=== PATIENT | male | born 1970 | race Caucasian/White ===

== ENCOUNTER 2016-06-12 17:05 | Inpatient (IN) | payer OTHER ==
[~2016-06-12] VITALS: Ht 170.2 cm; Wt 112.2 kg
[~2016-06-12 17:05] MED LIST: ASA81BEC PO; ASPIR 8181 MG PO; CARAFATE 1 GM TA1 G1 PO; COREG3.125 MG PO; DAILY VITE1 EACH PO; EFFIENT10 MG PO; FENOFIBRATE160 MG PO; GLIMEPIRIDE2 MG PO; LIPITOR 20 MG T20 M1 PO; LISINOPRIL-HCT1 EAC1 PO; LISINOPRIL10 MG PO; LISINOPRIL5 MG PO; METFORMIN HCL500 MG PO; PLAVIX 75 MG TA75 M1 PO; PROTONIX40 M1 PO; TYLENOL325 MG PO; UNICOMPLEX M TA1 TA1 PO; ZETIA10 MG PO
[2016-06-12 17:13] VITALS: BP 125/88
[2016-06-12 18:57] LABS: URINE BILIRUBIN NEGATIVE (Negative); URINE BLOOD TRACE (Negative); URINE COLOR YELLOW; URINE GLUCOSE-RANDOM* 1+ (Negative); URINE KETONES NEGATIVE (Negative); URINE LEUKOCYTES-REFLEX NEGATIVE (Negative); URINE PROTEIN (DIPSTICK) 2+ (Negative); URINE SPECIFIC GRAVITY 1.015 (1.003-1.035); URINE UROBILINOGEN 0.2 E.U./dl (0.2-1.0)
[2016-06-12 18:59] LABS: ABSOLUTE NEUTROPHILS 9.4 thou/uL (1.4-8.2); BASOPHILS 0.7 % (0.0-2.0); EOSINOPHILS 0.5 % (0.0-3.0); HEMATOCRIT 39.7 % (42.0-52.0); HEMOGLOBIN 13.5 gm/dL (14.0-18.0); LYMPHOCYTES 16.8 % (24.0-44.0); MANUAL DIFF NO; MCH 28.3 pg (26.0-34.0); MCHC 34.1 g/dL (28.0-37.0); MCV 83.1 fL (80.0-100.0); MONOCYTES 7.6 % (1.0-8.0); PLATELET COUNT 250 thou/uL (150-400); POLYS 74.4 % (36.0-66.0); RBC 4.78 mil/uL (4.50-6.00); RDW 14.2 % (10.5-14.5); WBC 12.6 thou/uL (4.0-11.0)
[2016-06-12 19:09] LABS: SQUAMOUS 0-3 Few /LPF (0-3)
[2016-06-12 19:09] LABS: CALCIUM 8.9 mg/dL (8.5-10.1); CREATININE 1.2 mg/dL (0.7-1.3); POTASSIUM 3.8 mmol/L (3.5-5.1)
[2016-06-12 19:10] LABS: CRYSTALS None Seen /LPF (None Seen); FINE GRANULAR CASTS 0-3 Few /LPF (None Seen); HYALINE CASTS 0-3 Few /LPF (None Seen); URINE RBC 0-2 Rare /HPF (0-2); URINE WBC-REFLEX 0-5 Rare /HPF (0-5)
[2016-06-12 19:14] LABS: TOTAL BILIRUBIN 0.6 mg/dL (<0.1-1.0); TOTAL PROTEIN 7.9 g/dL (6.4-8.2)
[2016-06-12 20:00] VITALS: BP 103/68
[2016-06-13 04:23] VITALS: BP 114/74
[2016-06-13 05:26] LABS: ABSOLUTE NEUTROPHILS 7.3 thou/uL (1.4-8.2); BASOPHILS 0.4 % (0.0-2.0); EOSINOPHILS 0.8 % (0.0-3.0); HEMATOCRIT 36.5 % (42.0-52.0); HEMOGLOBIN 12.4 gm/dL (14.0-18.0); LYMPHOCYTES 20.1 % (24.0-44.0); MCH 28.5 pg (26.0-34.0); MCHC 34.1 g/dL (28.0-37.0); MCV 83.4 fL (80.0-100.0); MONOCYTES 8.6 % (1.0-8.0); PLATELET COUNT 224 thou/uL (150-400); POLYS 70.1 % (36.0-66.0); RBC 4.37 mil/uL (4.50-6.00); RDW 14.1 % (10.5-14.5); WBC 10.4 thou/uL (4.0-11.0)
[2016-06-13 05:31] LABS: MANUAL DIFF NO
[2016-06-13 05:46] LABS: ALBUMIN 3.4 g/dL (3.4-5.0); CALCIUM 8.3 mg/dL (8.5-10.1); CREATININE 1.2 mg/dL (0.7-1.3); MAGNESIUM 1.9 mg/dL (1.8-2.4); POTASSIUM 3.8 mmol/L (3.5-5.1); TOTAL BILIRUBIN 0.6 mg/dL (<0.1-1.0); TOTAL PROTEIN 7.2 g/dL (6.4-8.2)
[2016-06-13 07:07] VITALS: BP 122/75
[2016-06-13 12:16] LABS: CHOLESTEROL 165 mg/dL (<200); HDL CHOLESTEROL 18 mg/dL (>40); TC:HDL 9.2 Ratio (Not establshd); TRIGLYCERIDE 856 mg/dL (<150); VLDL 171 mg/dL (<40)
[2016-06-13 15:31] VITALS: BP 117/75
[2016-06-13 20:00] VITALS: BP 130/87
[2016-06-14 04:30] VITALS: BP 99/67
[2016-06-14 04:58] LABS: HEMATOCRIT 34.4 % (42.0-52.0); HEMOGLOBIN 11.5 gm/dL (14.0-18.0); MCH 28.5 pg (26.0-34.0); MCHC 33.3 g/dL (28.0-37.0); MCV 85.6 fL (80.0-100.0); RBC 4.02 mil/uL (4.50-6.00); RDW 14.1 % (10.5-14.5); WBC 6.5 thou/uL (4.0-11.0)
[2016-06-14 05:16] LABS: ALBUMIN 2.8 g/dL (3.4-5.0); CALCIUM 8.3 mg/dL (8.5-10.1); CREATININE 1.3 mg/dL (0.7-1.3); TOTAL BILIRUBIN 0.4 mg/dL (<0.1-1.0); TOTAL PROTEIN 6.3 g/dL (6.4-8.2)
[2016-06-14 07:22] VITALS: BP 100/62
[2016-06-14] MEDS ORDERED: GEMFIBROZIL 60600 M1 PO (13:34)
[2016-06-14 13:54] VITALS: BP 100/62
[2016-06-14 14:58] VITALS: BP 128/75
== END 2016-06-14 16:28 | disposition home or self-care (01) | DRG 439 ==
LOC: ER 17:05 → 4E 20:16 → EROBS 20:16 → 4E 21:49
PROVIDERS: Family Medicine; Nurse Practitioner; Physician Assistant
DX: K85.90 Acute pancreatitis without necrosis or infection, unspecified (principal); E87.1 Hypo-osmolality and hyponatremia; K76.0 Fatty (change of) liver, not elsewhere classified; I10 Essential (primary) hypertension; G47.33 Obstructive sleep apnea (adult) (pediatric); E11.65 Type 2 diabetes mellitus with hyperglycemia; E66.01 Morbid (severe) obesity due to excess calories; E78.5 Hyperlipidemia, unspecified; I25.10 Atherosclerotic heart disease of native coronary artery without angina pectoris; Z87.11 Personal history of peptic ulcer disease; I25.2 Old myocardial infarction; Z98.61 Coronary angioplasty status; Z88.6 Allergy status to analgesic agent; Z79.82 Long term (current) use of aspirin; Z79.84 Long term (current) use of oral hypoglycemic drugs; Z82.49 Family history of ischemic heart disease and other diseases of the circulatory system; Z82.3 Family history of stroke; Z87.891 Personal history of nicotine dependence; Z68.38 Body mass index [BMI] 38.0-38.9, adult
CPT/HCPCS: 10183

== ENCOUNTER 2016-11-20 00:16 | Inpatient (IN) | payer OTHER ==
[~2016-11-20] VITALS: Ht 170.2 cm; Wt 116.8 kg
--- NOTE | ~2016-11-20 | EKG ---
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1970 Requested By: Galdino Kennedy Order Number: [id number] MD: Tao Steven Measurements Intervals [place] Rate: 82 P: 32 MO: 134 QRS: -7 QRSD: 96 T: 29 QT: 359 QTc: 420 Interpretive Statements Sinus rhythm Abnormal R-wave progression, early transition Compared to ECG 03/23/2014 10:05:38 Sinus tachycardia no longer present Electronically Signed On 11-21-2016 7:42:22 CDT by Tao Steven [email or web address] <ELECTRONICALLY SIGNED> By: Tao Steven MD, [facility] 11/21/16 0742 0413 0413 Tao Steven MD, [facility] /EPI
--- NOTE | ~2016-11-20 | EKG ---
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 : 1970 Requested By: Floridalma Grider Order Number: [id number] MD: Tao Steven Measurements Intervals [place] Rate: 83 P: 38 NC: 132 QRS: -7 QRSD: 97 T: 23 QT: 360 QTc: 423 Interpretive Statements Sinus rhythm Abnormal R-wave progression, early transition Baseline wander in lead(s) V2,V3 Compared to ECG 03/23/2014 10:05:38 Sinus tachycardia no longer present Electronically Signed On 11-20-2016 7:44:38 CDT by Tao Steven [email or web address] <ELECTRONICALLY SIGNED> By: Tao Steven MD, [facility] 11/20/16 0744 Tao Steven MD, [facility] /EPI
[~2016-11-20 00:16] MED LIST changes: +GEMFIBROZIL 60600 M1 PO
[2016-11-20 00:18] VITALS: BP 119/83
[2016-11-20 01:16] LABS: BASOPHILS 0.3 % (0.0-2.0); EOSINOPHILS 0.8 % (0.0-3.0); HEMATOCRIT 40.1 % (42.0-52.0); HEMOGLOBIN 13.9 gm/dL (14.0-18.0); LYMPHOCYTES 14.7 % (24.0-44.0); MCH 28.6 pg (26.0-34.0); MCHC 34.7 g/dL (28.0-37.0); MCV 82.4 fL (80.0-100.0); MONOCYTES 6.9 % (1.0-8.0); PLATELET COUNT 259 thou/uL (150-400); POLYS 77.3 % (36.0-66.0); RBC 4.86 mil/uL (4.50-6.00); RDW 14.2 % (10.5-14.5); WBC 11.7 thou/uL (4.0-11.0)
[2016-11-20 01:19] LABS: CALCIUM 8.4 mg/dL (8.5-10.1); CREATININE 0.9 mg/dL (0.7-1.3); POTASSIUM 4.1 mmol/L (3.5-5.1)
[2016-11-20 01:24] LABS: MANUAL DIFF NO
[2016-11-20 01:25] LABS: ALBUMIN 3.6 g/dL (3.4-5.0); TOTAL BILIRUBIN 0.9 mg/dL (<0.1-1.0)
[2016-11-20 01:46] LABS: TOTAL PROTEIN 7.3 g/dL (6.4-8.2)
[2016-11-20 02:39] VITALS: BP 104/65
[2016-11-20 02:50] VITALS: BP 111/68
[2016-11-20] MEDS ORDERED: FENOFIBRATE160 MG PO (03:44)
[2016-11-20] MEDS ORDERED: FISH OIL 1,001000 M2 PO (03:47)
[2016-11-20] MEDS ORDERED: VITAMIN B-12500 MCG PO (03:49)
[2016-11-20] MEDS ORDERED: VITAMIN E400 UNIT PO (03:50)
[2016-11-20] MEDS ORDERED: LEVEMIR SUBQ (03:54)
[2016-11-20 07:33] VITALS: BP 117/63
[2016-11-20 09:54] LABS: URINE BILIRUBIN NEGATIVE (Negative); URINE BLOOD NEGATIVE (Negative); URINE COLOR YELLOW; URINE GLUCOSE-RANDOM* 2+ (Negative); URINE KETONES NEGATIVE (Negative); URINE LEUKOCYTES-REFLEX NEGATIVE (Negative); URINE PROTEIN (DIPSTICK) TRACE (Negative); URINE UROBILINOGEN 0.2 E.U./dl (0.2-1.0)
[2016-11-20 15:27] VITALS: BP 122/75
[2016-11-20 19:22] VITALS: BP 130/74
[2016-11-21 03:52] VITALS: BP 111/60
[2016-11-21 05:58] LABS: HEMATOCRIT 37.2 % (42.0-52.0); HEMOGLOBIN 12.5 gm/dL (14.0-18.0); MCH 28.1 pg (26.0-34.0); MCHC 33.6 g/dL (28.0-37.0); MCV 83.8 fL (80.0-100.0); RBC 4.44 mil/uL (4.50-6.00); RDW 14.2 % (10.5-14.5); WBC 8.9 thou/uL (4.0-11.0)
[2016-11-21 06:16] LABS: ALBUMIN 2.7 g/dL (3.4-5.0); CALCIUM 8.4 mg/dL (8.5-10.1); CREATININE 0.9 mg/dL (0.7-1.3); POTASSIUM 3.6 mmol/L (3.5-5.1); TOTAL BILIRUBIN 0.7 mg/dL (<0.1-1.0); TOTAL PROTEIN 6.8 g/dL (6.4-8.2)
[2016-11-21 08:00] VITALS: BP 128/76
[2016-11-21 15:29] VITALS: BP 117/75
[2016-11-21 20:05] VITALS: BP 122/77
[2016-11-22 03:19] VITALS: BP 126/77
[2016-11-22 04:59] LABS: ABSOLUTE NEUTROPHILS 6.2 thou/uL (1.4-8.2); BASOPHILS 0.7 % (0.0-2.0); EOSINOPHILS 1.5 % (0.0-3.0); HEMATOCRIT 34.3 % (42.0-52.0); HEMOGLOBIN 11.1 gm/dL (14.0-18.0); MCH 27.7 pg (26.0-34.0); MCHC 32.4 g/dL (28.0-37.0); MCV 85.4 fL (80.0-100.0); MONOCYTES 9.7 % (1.0-8.0); PLATELET COUNT 202 thou/uL (150-400); POLYS 72.1 % (36.0-66.0); RBC 4.01 mil/uL (4.50-6.00); RDW 14.6 % (10.5-14.5); WBC 8.6 thou/uL (4.0-11.0)
[2016-11-22 05:00] LABS: MANUAL DIFF NO
[2016-11-22 05:10] LABS: CALCIUM 8.5 mg/dL (8.5-10.1); CREATININE 0.9 mg/dL (0.7-1.3); POTASSIUM 3.9 mmol/L (3.5-5.1)
[2016-11-22 05:13] LABS: TRIGLYCERIDE 649 mg/dL (<150)
[2016-11-22 07:49] VITALS: BP 124/78
[2016-11-22 16:06] VITALS: BP 121/72
[2016-11-22 20:47] VITALS: BP 143/80
[2016-11-23 03:31] VITALS: BP 142/55
[2016-11-23 05:35] LABS: ABSOLUTE NEUTROPHILS 4.8 thou/uL (1.4-8.2); BASOPHILS 0.9 % (0.0-2.0); EOSINOPHILS 3.3 % (0.0-3.0); HEMATOCRIT 35.6 % (42.0-52.0); HEMOGLOBIN 11.9 gm/dL (14.0-18.0); LYMPHOCYTES 18.6 % (24.0-44.0); MCH 28.5 pg (26.0-34.0); MCHC 33.3 g/dL (28.0-37.0); MCV 85.5 fL (80.0-100.0); MONOCYTES 8.1 % (1.0-8.0); PLATELET COUNT 240 thou/uL (150-400); POLYS 69.1 % (36.0-66.0); RBC 4.16 mil/uL (4.50-6.00); RDW 14.9 % (10.5-14.5)
[2016-11-23 05:37] LABS: MANUAL DIFF NO
[2016-11-23 05:50] LABS: CALCIUM 8.4 mg/dL (8.5-10.1); CREATININE 0.8 mg/dL (0.7-1.3); POTASSIUM 3.9 mmol/L (3.5-5.1)
[2016-11-23 07:50] VITALS: BP 141/81
[2016-11-23 15:04] VITALS: BP 149/91
[2016-11-23 20:30] VITALS: BP 136/76
[2016-11-24 04:28] VITALS: BP 143/83
[2016-11-24 08:10] VITALS: BP 140/86
[2016-11-24 16:05] VITALS: BP 140/88
[2016-11-24 20:32] VITALS: BP 135/84
[2016-11-25 03:00] VITALS: BP 125/80
[2016-11-25 06:24] LABS: CALCIUM 8.6 mg/dL (8.5-10.1); CREATININE 0.8 mg/dL (0.7-1.3); HEMATOCRIT 34.2 % (42.0-52.0); HEMOGLOBIN 11.5 gm/dL (14.0-18.0); MCH 28.4 pg (26.0-34.0); MCHC 33.6 g/dL (28.0-37.0); MCV 84.5 fL (80.0-100.0); PLATELET COUNT 257 thou/uL (150-400); POTASSIUM 3.7 mmol/L (3.5-5.1); RBC 4.05 mil/uL (4.50-6.00); RDW 14.5 % (10.5-14.5); WBC 5.3 thou/uL (4.0-11.0)
[2016-11-25 06:41] LABS: MANUAL DIFF YES
[2016-11-25 08:00] VITALS: BP 137/72
[2016-11-25 08:18] LABS: ABSOLUTE NEUTROPHILS 2.9 thou/uL (1.4-8.2); METAMYELOCYTES 1 %; POLYCHROMASIA OCCASIONAL; TOTAL CELL COUNT 100
[2016-11-25 08:19] LABS: ANISOCYTOSIS SLIGHT
[2016-11-25] MEDS ORDERED: PERCOCET PO (13:14)
[2016-11-25] MEDS ORDERED: FLAGYL500 MG PO (13:15)
[2016-11-25] MEDS ORDERED: CIPRO500 MG PO (13:15)
[2016-11-25 13:45] VITALS: BP 137/72
== END 2016-11-25 16:30 | disposition home or self-care (01) | DRG 439 ==
LOC: ER 00:16 → EROBS 02:21 → 4S 02:21 → ENTRNSPT 11-25 16:30
PROVIDERS: Emergency Medicine; Family Medicine; Internal Medicine Gastroenterology; Nurse Practitioner Family
DX: K85.90 Acute pancreatitis without necrosis or infection, unspecified (principal); J98.11 Atelectasis; E87.1 Hypo-osmolality and hyponatremia; J90 Pleural effusion, not elsewhere classified; Z68.41 Body mass index [BMI] 40.0-44.9, adult; E87.0 Hyperosmolality and hypernatremia; I10 Essential (primary) hypertension; E78.00 Pure hypercholesterolemia, unspecified; I25.10 Atherosclerotic heart disease of native coronary artery without angina pectoris; E11.65 Type 2 diabetes mellitus with hyperglycemia; E78.5 Hyperlipidemia, unspecified; K76.0 Fatty (change of) liver, not elsewhere classified; E66.9 Obesity, unspecified; E78.1 Pure hyperglyceridemia; Z95.5 Presence of coronary angioplasty implant and graft; I25.2 Old myocardial infarction; Z87.11 Personal history of peptic ulcer disease; Z79.899 Other long term (current) drug therapy; Z88.1 Allergy status to other antibiotic agents; Z88.8 Allergy status to other drugs, medicaments and biological substances; Z87.891 Personal history of nicotine dependence; Z28.21 Immunization not carried out because of patient refusal
CPT/HCPCS: 10102

== ENCOUNTER → 2018-03-02 | Outpatient (CLI) | payer BC ==
[~2018-03-02] MED LIST changes: +CIPRO500 MG PO; +FISH OIL 1,001000 M2 PO; +FLAGYL500 MG PO; +LEVEMIR SUBQ; +PERCOCET PO; +VITAMIN B-12500 MCG PO; +VITAMIN E400 UNIT PO
--- NOTE | 2018-03-02 16:19 | 2DMMODE ---
[facility] [address] [place] [address] 2 D/M-MODE ECHOCARDIOGRAM Name: YINGALEXSNEHA RAMIREZ Room #: REG [facility]#: [id number] Admission: 03/02/18 Attend Phys: Floyd Montes Discharge: Date of : 68 Date of Service: 03/02/18 1618 Report #: [id number] THIS REPORT FOR: //name// APPROVED REPORT Study performed: 03/02/2018 15:18:10 EXAM: Comprehensive 2D, Doppler, and color-flow Echocardiogram Patient Location: Out-Patient Status: routine BSA: 2.28 HR: 65 bpm BP: 138/55 mmHg Other Information Study Quality: Adequate Indications Cardiomyopathy 2D Dimensions RVDd: 36.33 mm IVSd: 10.28 (7-11mm) LVOT Diam: 23.05 (18-24mm) LVDd: 55.11 mm PWd: 9.56 (7-11mm) Ascending Ao: 31.88 (22-36mm) LVDs: 43.41 (25-40mm) Aortic Root: 32.44 mm IVC: 17.00 mm Volumes Left Atrial Volume (Systole) Single Plane 4CH: 53.21 mL Single Plane 2CH: 57.17 mL LA ESV Index: 27.00 mL/m2 Aortic Valve AoV Peak Dileep.: 1.57 m/s AO Peak Gr.: 9.88 mmHg LVOT Max P.15 mmHg LVOT Max V: 1.24 m/s PERCY Vmax: 3.29 cm2 Mitral Valve E/A Ratio: 1.8 MV Decel. Time: 169.25 ms MV E Max Dileep.: 1.16 m/s MV A Dileep.: 0.64 m/s [facility] [address] [place] [address] 2 D/M-MODE ECHOCARDIOGRAM Name: SNEHA JOSEPH Room #: REG [facility].#: [id number] Admission: 03/02/18 Attend Phys: Floyd Montes Discharge: Date of : 68 Date of Service: 03/02/18 1618 Report #: [id number] MV PHT: 49.08 ms IVRT: 83.04 ms Pulmonary Valve PV Peak Dileep.: 1.36 m/s PV Peak Gr.: 7.37 mmHg Pulmonary Vein P Vein S: 0.66 m/s P Vein A: 0.23 m/s P Vein D: 0.58 m/s P Vein A Dur.: 138.4 msec P Vein S/D Ratio: 1.14 Tricuspid Valve RAP Estimate: 10.00 mmHg Left Ventricle Left ventricle is at the upper limits of normal. There is normal left ventricular wall thickness. Left ventricular systolic function is mildly decreased. LVEF is 40-45%.mild global The left ventricular diastolic function is normal. Right Ventricle The right ventricle is normal size. The right ventricular systolic function is normal. Atria The left atrium size is normal. The right atrium size is normal. Aortic Valve Aortic valve is mildly calcified. Trace aortic regurgitation. There is no aortic valvular stenosis. Mitral Valve The mitral valve is normal in structure. Trace mitral regurgitation. No evidence of mitral valve stenosis. Tricuspid Valve The tricuspid valve is normal in structure. There is no tricuspid valve regurgitation noted. Unable to assess PA pressure. Pulmonic Valve The pulmonary valve is normal in structure. Trace pulmonic regurgitation. Great Vessels The aortic root is normal in size. IVC is normal in size and [facility] [address] [place] [address] 2 D/M-MODE ECHOCARDIOGRAM Name: JAKESNEHA ASHLEY Room #: REG [facility].#: [id number] Admission: 03/02/18 Attend Phys: Floyd Montes Discharge: Date of : 68 Date of Service: 03/02/18 1618 Report #: [id number] collapses <50% with inspiration. Pericardium There is no pericardial effusion. <Conclusion> Left ventricle is at the upper limits of normal. Left ventricular systolic function is mildly decreased. LVEF is 40-45%.mild global The right ventricle is normal size. The left ventricular diastolic function is normal. The left atrium size is normal. Aortic valve is mildly calcified. Trace aortic regurgitation. Trace mitral regurgitation. The mitral valve is normal in structure. The tricuspid valve is normal in structure. The aortic root is normal in size. There is no pericardial effusion. <ELECTRONICALLY SIGNED> By: Jared Short MD, FACC 03/02/18 1618 1618 1618 Jared Short MD, FACC /INF
== END ==
LOC: CV 02-27 09:59
DX: I42.9 Cardiomyopathy, unspecified (principal)

== ENCOUNTER 2018-10-06 13:44 | Inpatient (IN) | payer BC ==
[~2018-10-06] VITALS: Ht 175.3 cm; Wt 115.7 kg
[2018-10-06 13:50] VITALS: BP 148/90
[2018-10-06] MEDS ORDERED: [UNRECOGNIZED DRUG - OTHER] PO (14:17)
[2018-10-06] MEDS ORDERED: ENTRESTO 49 MG1 EACH PO (14:18)
[2018-10-06 14:25] LABS: ABSOLUTE NEUTROPHILS 3.6 thou/uL (1.4-8.2); BASOPHILS 1.6 % (0.0-2.0); EOSINOPHILS 2.1 % (0.0-3.0); HEMATOCRIT 40.6 % (42.0-52.0); HEMOGLOBIN 14.1 gm/dL (14.0-18.0); LYMPHOCYTES 30.7 % (24.0-44.0); MCH 28.9 pg (26.0-34.0); MCHC 34.7 g/dL (28.0-37.0); MCV 83.3 fL (80.0-100.0); MONOCYTES 6.2 % (1.0-8.0); PLATELET COUNT 221 thou/uL (150-400); POLYS 59.4 % (36.0-66.0); RBC 4.87 mil/uL (4.50-6.00); RDW 14.1 % (10.5-14.5); WBC 6.1 thou/uL (4.0-11.0)
[2018-10-06 14:29] LABS: ANION GAP 10 mmol/L (7-16); BUN 10 mg/dL (7-18); CALCIUM 8.7 mg/dL (8.5-10.1); CHLORIDE 93 mmol/L (98-107); CO2 25 mmol/L (21-32); CREATININE 1.2 mg/dL (0.7-1.3); GLUCOSE 377 mg/dL (74-106); POTASSIUM 4.3 mmol/L (3.5-5.1); SODIUM 128 mmol/L (136-145)
[2018-10-06 14:38] LABS: TROPONIN-I <0.06 ng/mL (<0.06)
[2018-10-06 16:10] LABS: CHOLESTEROL 248 mg/dL (<200); HDL CHOLESTEROL 14 mg/dL (>40); TC:HDL 17.7 Ratio (Not establshd); VLDL 582 mg/dL (<40)
[2018-10-06 16:19] LABS: ALBUMIN 3.7 g/dL (3.4-5.0); DIRECT BILIRUBIN 0.1 mg/dL (<0.1-0.3); TOTAL BILIRUBIN 0.6 mg/dL (<0.1-1.0); TOTAL PROTEIN 7.1 g/dL (6.4-8.2)
[2018-10-06 16:30] LABS: TRIGLYCERIDE 2910 mg/dL (<150)
--- NOTE | 2018-10-06 16:33 | EKG ---
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 : 1970 Requested By: Cherri Daniels Order Number: [id number] MD: Jae Warren Measurements Intervals [place] Rate: 72 P: 51 MN: 143 QRS: -6 QRSD: 96 T: 25 QT: 383 QTc: 420 Interpretive Statements Sinus rhythm Left atrial enlargement ST elev, probable normal early repol pattern Baseline wander in lead(s) V2 Compared to ECG 10/21/2017 19:12:12 Atrial abnormality now present ST (T wave) deviation now present Electronically Signed On 10-06-2018 16:33:26 CDT by Jae Warren [email or web address] <ELECTRONICALLY SIGNED> By: Jae Warren MD 10/06/18 1633 1348 1348 Jae Warren MD /EPI
[2018-10-06 17:29] LABS: TSH 2.259 uIU/mL (0.358-3.740)
[2018-10-06 17:42] VITALS: BP 141/87
[2018-10-06 19:29] VITALS: BP 120/83
[2018-10-06 19:53] VITALS: BP 136/86
[2018-10-06] MEDS ORDERED: SPIRONOLACTONE25 M1 PO (20:31)
[2018-10-06] MEDS ORDERED: CLARITIN10 MG PO (20:32)
[2018-10-07] VITALS (7 sets, daily range): BP systolic 113–147; BP diastolic 71–99
[2018-10-07 00:08] LABS: GLYCOHEMOGLOBIN (HGB A1C) 12.6 % (4.8-5.6)
--- NOTE | 2018-10-07 06:02 | NUR ---
PT ARRIVED TO UNIT APPROX 1930, ADMISSION AND ASSESSMENT COMPLETED, CONSENTS SIGNED INCLUDING TELE DISCLAIMER. PT A&Ox4 BUT VERY FLAT AND UNCOOPERATIVE WITH ANSWERING QUESTIONS, KEPT DEFERRING QUESTIONS ABOUT HISTORY AND CURRENT SYMPTOMS TO HIS , AND IGNORING STAFF. HAVING FREQ NAUSEA WITH BOTH DRY HEAVES AND EMESIS; C/O RUQ ABD PAIN. KEEPING NPO WITH Q6 ACCUCHECKS AND SLIDING SCALE INSULIN COVERAGE, GIVEN 12 UNITS AT MIDNIGHT. IV FLUIDS INFUSING. SR-ST 95-103 ON TELE. NO OTHER CONCERNS, WILL CONTINUE TO MONITOR.
[2018-10-07 11:10] LABS: ALBUMIN 3.3 g/dL (3.4-5.0); CALCIUM 6.9 mg/dL (8.5-10.1); CREATININE 1.4 mg/dL (0.7-1.3); TOTAL BILIRUBIN 0.7 mg/dL (<0.1-1.0); TOTAL PROTEIN 6.5 g/dL (6.4-8.2)
[2018-10-07 11:15] LABS: POTASSIUM 4.7 mmol/L (3.5-5.1)
--- NOTE | 2018-10-07 17:50 | NUR ---
ASSUMED CARE OF PATIENT AT 0700. PATIENT HAS BEEN CALM, COMPLIANT, AND RESTED ALL DAY. PAIN REMAINED LOW FOR MOST OF THE SHIFT, WELL NAUSEA. PATIENT RECIEVED ZOFRAN AND FENTANYL. MONITORING PATIENT'S LIPASE THAT WAS 2032 AT 0558. PREVIOUSLY LAB VALUE WAS OVER 7000. PATIENT IS NPO WITH HIGH BLOOD SUGARS, RECEIVING 20 UNITS OF LISPRO AT LUNCH AND DINNER TIME. LEFT PATIENT AT MODERATE LEVEL FOR SLIDING SCALE AFTER LUNCH DUE TO NPO STATUS. PATIENT HAS BEEN RECIEVING NORMAL SALINE IV FLUIDS.
--- NOTE | 2018-10-07 23:09 | NUR ---
PATIENT IS ALERT AND ORIENTED. PATIENT IS SBA. PATIENT IS ROOM AIR. NSR ON TELE. PATIENT IS NPO Q6H ACCUCHECK. LBM WAS THE 13TH. PATIENT WAS GIVEN NAUSEA MEDS. PATIENT IS RESTING COMFORTABLY IN BED. PATIENTS PAIN IS UNDER CONTROL. PATIENT IS PROGRESSING TO GOALS. SLIGHT TEMP. WCM.
[2018-10-08 03:02] VITALS: BP 120/67
--- NOTE | 2018-10-08 05:28 | NUR ---
Pt transferred from 3W approx 2330. A/OX4,oriented to the room and unit.VSS. C/o abdominal pain medicated with Fentanyl with relief reported. Pt did have a greenish emesis at 0300 medicated with Zofran with relief reported. IVF infusing via RAC without any problems.Resting comfortably without any distress BPAP in place,will continue to monitor pt.
[2018-10-08 06:33] LABS: HEMATOCRIT 39.3 % (42.0-52.0); HEMOGLOBIN 13.2 gm/dL (14.0-18.0); MCH 28.5 pg (26.0-34.0); MCHC 33.7 g/dL (28.0-37.0); MCV 84.5 fL (80.0-100.0); RBC 4.65 mil/uL (4.50-6.00); RDW 14.8 % (10.5-14.5); WBC 5.3 thou/uL (4.0-11.0)
[2018-10-08 06:42] LABS: ALBUMIN 2.5 g/dL (3.4-5.0); CALCIUM 7.3 mg/dL (8.5-10.1); CREATININE 1.1 mg/dL (0.7-1.3); MAGNESIUM 1.6 mg/dL (1.8-2.4); TOTAL BILIRUBIN 0.6 mg/dL (<0.1-1.0); TOTAL PROTEIN 6.2 g/dL (6.4-8.2)
[2018-10-08 06:48] LABS: POTASSIUM 3.4 mmol/L (3.5-5.1)
[2018-10-08 07:01] VITALS: BP 120/69
--- NOTE | 2018-10-08 14:55 | NUR ---
met with patient who is A/Ox4. 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 He admits with pancreatitis. He reports PCP is Dr Polo. disabled but able to assist at dc if needed. Patient reports his employment aware he is in hospital and plan to return once stable. He anticipates no needs from casemgt. Patient has health ins and prescription coverage. casemgt avail if needs arise.
[2018-10-08 15:36] VITALS: BP 134/75
--- NOTE | 2018-10-08 19:43 | NUR ---
Assumed care of pt at 0700. Pt a&ox4. Pain controlled with prn pain meds. SBA. IVF infusing. Diet advanced to CL. Call light within reach. Fall precautions in place.
[2018-10-08 20:05] VITALS: BP 127/71
--- NOTE | 2018-10-09 02:23 | NUR ---
PATIENT AOX4 MAKES NEEDS KNOWN. PAIN CONTROLLED THIS SHIFT. PATIENT DENIED NAUSEA OR VOMIT THIS SHIFT. PATIENT AMBULATES WITH STEADY GAITS. PATIENT IN BED ASLEEP AT THIS TIME BREATHING REGULAR AND UNLABOURED.
[2018-10-09 04:28] VITALS: BP 147/69
[2018-10-09 08:00] VITALS: BP 115/71
[2018-10-09 15:00] VITALS: BP 137/77
--- NOTE | 2018-10-09 19:31 | NUR ---
PATIENT CARE WAS ASSUMED AT 0715.PATIENT IS ALERT AND ORIENTED X4.PATIENT IS ABLE TO AMBULATE ON HIS OWN WITH STAND BY ASSIST.PATIENT HASNO COMPLAINS OF NAUSEA/VOMITTING.PATIENT HAS PAIN 4/10 PAIN MEDS WERE GIVEN.PATIENT HAS CALL LIGHT,PHONE, AND PERSONAL BELONGINGS WITHIN REACH.
[2018-10-09 20:24] VITALS: BP 183/77
[2018-10-09 22:41] VITALS: BP 13/74; BP 134/74
--- NOTE | 2018-10-10 04:09 | NUR ---
ASSUMED CARE AROUND 1900. AXOX4. PERSISTENT PAIN ON ABD GENERALIZED. HTN RESOLVED WITHOUT ANY ADDITIONAL INTERVENTION. NO S/S ACUTE DISTRESS NOTED OR REPORTED AT THIS TIME. WILL CONT TO MONITOR FOR ANY CHANGES IN CONDITION.
[2018-10-10 06:00] LABS: CALCIUM 8.4 mg/dL (8.5-10.1); CREATININE 0.7 mg/dL (0.7-1.3); POTASSIUM 3.8 mmol/L (3.5-5.1)
[2018-10-10 10:50] VITALS: BP 132/76
--- NOTE | 2018-10-10 12:08 | HC ---
[facility] [place] [place] [address] CONSULTATION Name: SNEHA JOSEPH Room #: 457-P ADM IN M.R.#: [id number] Admission: 10/06/18 Attend Phys: Fidel Montilla MD Discharge: Date of : 68 Report #: [id number] THIS REPORT FOR: //name// CC: Jeferson Montilla DATE OF SERVICE: 10/09/2018 ENDOCRINOLOGY CONSULTATION. PHYSICIAN: Dr. Fidel Montilla. REASON FOR CONSULTATION: Uncontrolled type 2 diabetes mellitus, severe dyslipidemia. HISTORY OF PRESENT ILLNESS: This is a 47-year-old male patient whose medical background is noted for obesity, type 2 diabetes mellitus, CAD, multiple episodes of pancreatitis. The patient presented on 10/06/2018 with abdominal pain and was later on diagnosed with acute pancreatitis and was admitted for further care and management. During his hospital stay, the patient had done considerably better and is currently able to tolerate clears well with less abdominal pain and lower lipase levels. 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 That said, the patient had utilized metformin monotherapy and notes that his blood glucose control has been unsatisfactory with daily blood glucose values running in the 300s mg/dL range at home. The patient believes that he has a degree of diabetic retinopathy, but has not had interventions done yet, he also had coronary artery disease with a stent placed a few years ago, he has intermittent issues with numbness in the feet. He is not aware of kidney dysfunction issues. REVIEW OF SYSTEMS: CONSTITUTIONAL: Intermittent issues with fatigue, tiredness, but not weight changes. PULMONARY: No shortness of breath, cough or hemoptysis. CARDIAC: No chest pain, palpitations, or syncope. GASTROINTESTINAL: Abdominal pain, nausea, vomiting, all doing better now since his admission. SKIN: No rash or itching. MUSCULOSKELETAL: Occasional myalgia, joint aches. [facility] [address] [place] [address] CONSULTATION Name: SNEHA JOSEPH Room #: 457-P [facility] IN M.R.#: [id number] Admission: 10/06/18 Attend Phys: Fidel Montilla MD Discharge: Date of : 68 Report #: [id number] NEUROLOGICAL: No loss of consciousness, seizures, but has intermittent headaches. ENDOCRINOLOGY: Type 2 diabetes mellitus as noted above. PSYCHIATRIC: No major issues, depression, anxiety, or significant sleep disturbances. Otherwise, review of systems noncontributory other than those mentioned in HPI. PAST MEDICAL HISTORY: 1. Type 2 diabetes mellitus. 2. Coronary artery disease with history of stent placement. 3. Four episodes of pancreatitis. 4. Obesity. 5. Hypertension. 6. Hyperlipidemia. 7. Hypertriglyceridemia. 8. Peptic ulcer disease, history of perforated ulcer. HOME MEDICATIONS: Include atorvastatin 20 mg daily, fenofibrate 160 mg daily, cyanocobalamin 500 mg daily, vitamin E 400 units p.o. daily, metformin 1000 mg b.i.d., pantoprazole 40 mg daily, aspirin 81 mg daily, glimepiride 1 mg once daily. ALLERGIES: NEOSPORIN. PAST SURGICAL HISTORY: Unremarkable. FAMILY HISTORY: Diabetes, hypertension. SOCIAL HISTORY: ; quit tobacco a few years ago. Drinks alcohol only occasionally. No drug use. 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 Has two children. PHYSICAL EXAMINATION: GENERAL: Pleasant male patient who is not in apparent pain or distress. VITAL SIGNS: Blood pressure is 147/69, heart rate is 74 beats per minute, respirations 14 per minute, temperature 36.8 Celsius. HEENT: Intact extraocular motions. No conjunctival injection. He has anicterus. No throat hyperemia. No lymphadenopathy. NECK: Supple, with full range of motion. No thyromegaly. LUNGS: Chest is clear to auscultation. Good air entry bilaterally without wheezes, rales or crackles. CARDIOVASCULAR: Regular rate and rhythm without murmurs or gallops. ABDOMEN: Obese, but soft and lax, without mass or organomegaly. He has active bowel sounds. The patient's exam was nontender. EXTREMITIES: Lower extremity exam noted for trace ankle edema bilaterally. No skin breaks or ulcerations. Pedal pulses are faint. [address] [address] CONSULTATION Name: SNEHA JOSEPH Room #: 457-P [facility] IN M.R.#: [id number] Admission: 10/06/18 Attend Phys: Fidel Montilla MD Discharge: Date of : 68 Report #: [id number] NEUROLOGIC: Awake, alert and oriented to time, place and person. examination was nonfocal. PSYCHIATRIC: Flat affect, but answers my questions appropriately. SKIN: Intact. No ecchymosis, no bruising, no ulceration noted. LABORATORY DATA: Sodium 134, potassium 3.4, chloride 101, CO2 of 23, anion gap 10, BUN 19, creatinine 1.1. AST 24; lipase is 778, coming down from a high of 7624. Calcium 7.3, magnesium 1.6, alkaline phosphatase 35, ALT 26, total protein 6.2, albumin 2.5, GFR 71. Troponin negative. Total cholesterol 248; triglycerides 1046, coming down from 2910. Hemoglobin 13.2, white blood count 5.3, platelets 217. TSH 2.259. Vitamin B12 2588. Hemoglobin A1c 12.6. ASSESSMENT AND PLAN: 1. Type 2 diabetes mellitus, uncontrolled and associated with the end-organ complications of retinopathy and neuropathy as well as coronary artery disease. The patient and I had a detailed discussion about this outlook and I counseled him on the need to introduce changes that are likely to bring about the necessary control to avoid further issues with microvascular and macrovascular complications. He seemed to understand these considerations rather well. In the current setting of pancreatitis and severely elevated triglycerides, the patient would not be a candidate for a GLP-1 analogs or DPP-4 inhibitors as these would be a concern in the setting of recurrent pancreatitis. Insulin therapy would be highly preferred in order to induce an endothelial lipase activity which is likely to help with the dyslipidemia issue in a timely fashion. This is going to be wait against the complexity. 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 In the immediate setting, I would introduce a full dose of Glucophage at 750 mg b.i.d. in addition to Lantus insulin at a dose of 25 units daily. The patient could be a good candidate for an SGLT2 inhibitor such as Farxiga or Jardiance. I will go ahead and add Jardiance especially in view of his coronary heart disease due to the added benefit of CVD protection. I will hold off on sulfonylurea for the time being until we see the patient's progress via the continued blood glucose monitoring. 2. Dyslipidemia. The patient has severe dyslipidemia, which undoubtedly is contributory to the issue of pancreatitis. I stressed the importance of adequate control in order to prevent further occurrences in the future, which the patient understood well. I will continue the current combination of statin and fenofibrate and continue to monitor the patient closely. 3. Hypocalcemia. When corrected, this is low normal. This could be seen in the setting of acute resolving pancreatitis. I will check a vitamin D level and have a low threshold to replete in order to avoid deeper states of hypocalcemia. [facility] [address] [place] [address] CONSULTATION Name: SNEHA JOSEPH Room #: 457-P ADM IN M.R.#: [id number] Admission: 10/06/18 Attend Phys: Fidel Montilla MD Discharge: Date of : 68 Report #: [id number] I certainly appreciate this consultation by Dr. Montilla and the opportunity to care for this pleasant gentleman. <ELECTRONICALLY SIGNED> By: Amy Rodrigez MD 10/10/18 1208 1245 2227 Amy Rodrigez MD /nt
[2018-10-10 15:47] VITALS: BP 129/86
--- NOTE | 2018-10-10 16:39 | NUR ---
Assumed pt care at 7am.Assessment cdompleted.vss.Pt up in chair resting.C/o constipation.Dr Holt here and order noted.Pt reported moderate bm after breakfast. Pt ambulated in hallways several times today.Good endurance noted. 1 bottle of mag citrate given,no result yet.Will continue to monitor.
[2018-10-10 19:35] VITALS: BP 139/79
--- NOTE | 2018-10-11 04:50 | NUR ---
ASSUMED CARE AROUND 1900. AXOX4. AMBULATORY. PERSSITENT PAIN AND DISCOMFORT ON ABD. KUB OBATINED. NO S/S ACUTE DISTRESS NOTED OR REPORTED AT THIS TIME. WILL CONT TO MONITOR FOR ANY CHANGES IN CONDITION.
[2018-10-11 07:40] VITALS: BP 145/79
[2018-10-11] MEDS ORDERED: CARVEDILOL12.5 MG PO (09:48)
[2018-10-11] MEDS ORDERED: JARDIANCE10 MG PO (10:29)
[2018-10-11] MEDS ORDERED: GLUCOTROL5 MG PO (10:31)
[2018-10-11] MEDS ORDERED: GLUCOPHAGE XR750 MG PO (13:44)
[2018-10-11 15:01] VITALS: BP 145/79
--- NOTE | 2018-10-11 17:28 | NUR ---
PT A&OX4, VSS, DENIES PAIN. PATIENT C/O OF BLOATING. ABD DISTENDED AND FIRM. BOWEL SOUNDS ACTIVE X4, PATIENT BELCHING, PASSING FLATUS, AND HAD A SMALL BM TODAY. NO SIGNS OF DISTRESS, NO C/O OF SOA OR CHEST PAIN. PATIENT DC'D HOME, ALL BELONGINGS WITH PATIENT, IV REMOVED.
== END 2018-10-11 17:00 | disposition home or self-care (01) | DRG 440 ==
LOC: ER 13:44 → 3W 16:28 → EROBS 16:28 → 3W 19:34 → 4W 10-07 23:28
PROVIDERS: Emergency Medicine; Internal Medicine; Internal Medicine Gastroenterology; Nurse Practitioner; ADMIT Internal Medicine
DX: K85.90 Acute pancreatitis without necrosis or infection, unspecified (principal); I10 Essential (primary) hypertension; I25.10 Atherosclerotic heart disease of native coronary artery without angina pectoris; K21.9 Gastro-esophageal reflux disease without esophagitis; K76.0 Fatty (change of) liver, not elsewhere classified; E78.1 Pure hyperglyceridemia; E66.9 Obesity, unspecified; E11.65 Type 2 diabetes mellitus with hyperglycemia; E11.40 Type 2 diabetes mellitus with diabetic neuropathy, unspecified; E11.319 Type 2 diabetes mellitus with unspecified diabetic retinopathy without macular edema; E83.51 Hypocalcemia; I25.2 Old myocardial infarction; Z68.37 Body mass index [BMI] 37.0-37.9, adult; Z87.11 Personal history of peptic ulcer disease; Z95.5 Presence of coronary angioplasty implant and graft; Z87.891 Personal history of nicotine dependence; Z79.82 Long term (current) use of aspirin; Z79.84 Long term (current) use of oral hypoglycemic drugs; Z79.899 Other long term (current) drug therapy; Z88.1 Allergy status to other antibiotic agents; Z88.8 Allergy status to other drugs, medicaments and biological substances; Z82.49 Family history of ischemic heart disease and other diseases of the circulatory system; Z83.3 Family history of diabetes mellitus
CPT/HCPCS: 10040; 10045; 10879

== ENCOUNTER → 2019-05-28 | Outpatient (CLI) | payer OTHER ==
[~2019-05-28] MED LIST changes: +CARVEDILOL12.5 MG PO; +CLARITIN10 MG PO; +ENTRESTO 49 MG1 EACH PO; +GLUCOPHAGE XR750 MG PO; +GLUCOTROL5 MG PO; +JARDIANCE10 MG PO; +SPIRONOLACTONE25 M1 PO; +[UNRECOGNIZED DRUG - OTHER] PO
== END ==
LOC: CV 10:42
PROVIDERS: ATTEND Internal Medicine
DX: I42.9 Cardiomyopathy, unspecified (principal)

== ENCOUNTER 2019-11-06 11:27 | Inpatient (IN) | payer OTHER ==
[~2019-11-06] VITALS: Ht 170.2 cm; Wt 119.3 kg
[2019-11-06 11:33] VITALS: BP 156/104
[2019-11-06 11:43] LABS: URINE BILIRUBIN NEGATIVE (Negative); URINE BLOOD NEGATIVE (Negative); URINE CLARITY CLEAR; URINE COLOR YELLOW; URINE GLUCOSE-RANDOM* 3+ (Negative); URINE KETONES NEGATIVE (Negative); URINE LEUKOCYTES-REFLEX NEGATIVE (Negative); URINE NITRITE-REFLEX NEGATIVE (Negative); URINE PROTEIN (DIPSTICK) TRACE (Negative); URINE UROBILINOGEN 0.2 E.U./dl (0.2-1.0)
[2019-11-06] MEDS ORDERED: PROTONIX40 M2 PO (13:29)
[2019-11-06] MEDS ORDERED: ENTRESTO 49 MG1 EACH PO (13:29)
[2019-11-06] MEDS ORDERED: JARDIANCE10 MG PO (13:30)
[2019-11-06] MEDS ORDERED: VASCEPA0.5 GM PO (13:31)
[2019-11-06 13:52] LABS: ABSOLUTE NEUTROPHILS 7.3 thou/uL (1.4-8.2); BASOPHILS 0.9 % (0.0-2.0); EOSINOPHILS 0.6 % (0.0-3.0); HEMATOCRIT 41.9 % (42.0-52.0); HEMOGLOBIN 14.5 gm/dL (14.0-18.0); LYMPHOCYTES 17.8 % (24.0-44.0); MCHC 34.6 g/dL (28.0-37.0); MCV 80.9 fL (80.0-100.0); MONOCYTES 4.4 % (1.0-8.0); PLATELET COUNT 201 thou/uL (150-400); POLYS 76.3 % (36.0-66.0); RBC 5.18 mil/uL (4.50-6.00); RDW 14.6 % (10.5-14.5); WBC 9.5 thou/uL (4.0-11.0)
[2019-11-06 14:03] LABS: CREATININE 0.8 mg/dL (0.7-1.3); POTASSIUM 4.4 mmol/L (3.5-5.1)
[2019-11-06 14:10] LABS: ALBUMIN 3.6 g/dL (3.4-5.0); TOTAL BILIRUBIN 0.7 mg/dL (0.2-1.0); TOTAL PROTEIN 7.3 g/dL (6.4-8.2)
[2019-11-06 16:11] LABS: CHOLESTEROL 217 mg/dL (<200); HDL CHOLESTEROL 14 mg/dL (>40); TC:HDL 15.5 Ratio (Not establshd); VLDL 464 mg/dL (<40)
[2019-11-06 16:29] LABS: TRIGLYCERIDE 2404 mg/dL (<150)
--- NOTE | 2019-11-06 17:31 | NUR ---
This RN consulting with pharmacy at this time in order to obtain starting rate for an insulin drip which is treating hypertryglyceridemia.
--- NOTE | 2019-11-06 17:35 | NUR ---
Gómez, pharmicist, reports to consult with ER physician but that the insulin should be started at 5 U/hr.
--- NOTE | 2019-11-07 03:30 | NUR ---
BROKE HANDLER, ANNELISE RAMÍREZ CONTACTED REGARDING POTENTIALLY DOWNGRADING PATIENT TO CCU STATUS SINCE THE INSULIN GTTS IS NOT BEING TITRATED AND IS RUNNING AT 5 UNITS/HOUR. YUMIKO RAMÍREZ STATES THAT SINCE PATIENT WAS JUST ADMITTED AT 1630, SHE WOULD LIKE DR. ROMERO TO SEE THE PATIENT IN THE MORNING AND MAKE A DETERMINATION TO PLAN OF CARE AND POSSIBLE DOWNGRADE AT THAT TIME
[2019-11-07 06:47] LABS: ALBUMIN 3.1 g/dL (3.4-5.0); CALCIUM 7.9 mg/dL (8.5-10.1); MAGNESIUM 1.9 mg/dL (1.8-2.4); PHOSPHORUS 3.2 mg/dL (2.5-4.9); POTASSIUM 3.7 mmol/L (3.5-5.1); TOTAL BILIRUBIN 0.6 mg/dL (0.2-1.0); TOTAL PROTEIN 6.9 g/dL (6.4-8.2)
[2019-11-07 10:01] LABS: ABSOLUTE NEUTROPHILS 6.1 thou/uL (1.4-8.2); BASOPHILS 0.3 % (0.0-2.0); EOSINOPHILS 0.1 % (0.0-3.0); HEMATOCRIT 46.3 % (42.0-52.0); HEMOGLOBIN 15.3 gm/dL (14.0-18.0); LYMPHOCYTES 18.4 % (24.0-44.0); MCH 27.3 pg (26.0-34.0); MCV 82.8 fL (80.0-100.0); MONOCYTES 4.9 % (1.0-8.0); PLATELET COUNT 227 thou/uL (150-400); POLYS 76.3 % (36.0-66.0); RDW 15.5 % (10.5-14.5); WBC 8.1 thou/uL (4.0-11.0)
--- NOTE | 2019-11-07 15:20 | NUR ---
SPOKE TO DR. MARTINEZ (ENDOCRINE) AT THIS TIME, DUE TO THE LACK OF ICU BEDS AND THE UNCERTAINITY OF WHEN WE'LL HAVE ICU BEDS. DR. ARENAS WANTS TO GET PT OFF BOTH OF HIS DEXTROSE AND INSULIN DRIPS SO THAT HE CAN GO TO M/S TELE. IN ORDER TO DO THIS, WE'RE GIVING A SUBQ DOSE OF LONG ACTING INSULIN, APPROX 2-3 HOURS LATER PT NEEDS TO BE TURNED OFF BOTH DRIPS AND WILL BE PUT ON Q6HR ACCU CHECKS WITH SLIDING SCALE INSULIN
--- NOTE | 2019-11-07 18:19 | NUR ---
CLINT [place]AIN - CALL WHEN PT GETS A BED UPSTAIRS.
[2019-11-07 19:36] VITALS: BP 132/76
--- NOTE | 2019-11-07 19:46 | NUR ---
SPOKE WITH CLINT AND LET HER KNOW WHAT ROOM THE PATIENT IS GOING TO
[2019-11-07 19:50] VITALS: BP 123/79
[2019-11-07 19:55] VITALS: BP 140/79
--- NOTE | 2019-11-08 05:15 | NUR ---
VSS-AFEBRILE. ALERT AND ORIENTED X 4, LUNGS CLEAR-ROOM AIR. WEARS CPAP WHEN SLEEPING. C/O SIGNIFICANT ABDOMINAL PAIN THAT IS PARTIALLY RELIEVED WITH IV FENTANYL. KEPT NPO PER ORDERS. BLOOD GLUCOSE MONITORED EVERY 6 HOURS AND TREATED PER SLIDING SCALE. OOB AD JEWEL-STEADY ON FEET. CALLS APPROPRIATELY FOR ANY NEEDED ASSISTANCE.
[2019-11-08 05:25] VITALS: BP 151/93
[2019-11-08 08:43] VITALS: BP 152/96
--- NOTE | 2019-11-08 11:41 | HC ---
[facility] [place] [address] [place] [address] CONSULTATION Name: SNEHA JOSEPH Room #: 457-P ADM IN M.R.#: [id number] Admission: 11/06/19 Attend Phys: Alana Babin MD Discharge: Date of : 68 Report #: [id number] THIS REPORT FOR: cc: Jeferson Polo MD, Douglas L. MD Al-Mubaslat, Ahmad MD ~ CC: Jeferson Babin DATE OF SERVICE: 11/07/2019 ENDOCRINE CONSULTATION NOTE CONSULTING PHYSICIAN: Dr. Babin, [place] [id number]. REASON FOR CONSULTATION: Type 2 diabetes mellitus, uncontrolled. HISTORY OF PRESENT ILLNESS: This is a 48-year-old male patient whose medical background is known for multiple medical issues including type 2 diabetes mellitus, coronary artery disease, recurrent pancreatitis and hypertension as well as dyslipidemia. The patient presented to our Emergency Department due to progressively intensifying abdominal pain that started the morning on admission. He recalls having had pancreatitis last about a year ago. The patient has had type 2 diabetes mellitus since 2013 and is maintained on a combination of Jardiance 10 mg daily, metformin 750 mg b.i.d., glipizide 5 mg daily. He notes that his blood glucose values have worsened over the past few months due to him getting lax about diet restrictions and recalls having had blood glucose values mostly in the 150-250 mg/dL. However, he has been under better control prior to that as he believes his last hemoglobin A1c checked in 05/2019 was at 6.5%. He is not aware of issues pertaining to diabetic retinopathy, nephropathy, or neuropathy. However, he does have CAD, status post ND, status post stent placement in 2013. The patient is hyperlipidemic and is maintained on atorvastatin 40 mg each at bedtime as well as fenofibrate 160 mg b.i.d. He is known to have hypertension and is maintained on carvedilol 12.5 mg p.o. b.i.d. REVIEW OF SYSTEMS: CONSTITUTIONAL: Negative for fever, chills, body weight changes. Noted for intermittent issues with fatigue. HEENT: Negative for sore throat, sinus pain or ear drainage. PULMONARY: Negative for shortness of breath, cough or hemoptysis. CARDIAC: Negative for chest pain, palpitations, syncope or presyncope. GASTROINTESTINAL: Noted for severe abdominal pain, rapidly progressing earlier [facility] [address] [place] [address] CONSULTATION Name: SNEHA JOSEPH Room #: 457-P [facility] IN .R.#: [id number] Admission: 11/06/19 Attend Phys: Alana Babin MD Discharge: Date of : 68 Report #: [id number], bouts of nausea and dry heaving. NEUROLOGY: Negative for loss of consciousness, seizure activity or frequent severe headaches. DERMATOLOGIC: Negative for rash, ulceration, discoloration. Otherwise, his review of systems is noncontributory other than those mentioned in HPI. PAST MEDICAL HISTORY: 1. Type 2 diabetes mellitus. 2. Hyperlipidemia. 3. Dyslipidemia. 4. CAD, status post ND, status post stent placement in 2013. 5. GERD. 6. Recurrent pancreatitis. 7. Seasonal allergies. 8. Peptic ulcer disease, status post perforated ulcer and laparotomy in 2017. OUTPATIENT MEDICATIONS: Include atorvastatin 40 mg at bedtime, fenofibrate 160 mg b.i.d., multivitamin daily, loratadine 10 mg daily, vitamin B12 500 mcg daily, pantoprazole 40 mg daily, aspirin 81 mg daily, Entresto 49/51 mg daily, Protonix 40 mg b.i.d., Jardiance 10 mg daily, glipizide 5 mg daily, metformin 750 mg b.i.d., carvedilol 12.5 mg b.i.d. ALLERGIES: HE IS ALLERGIC TO BACITRACIN, NEOMYCIN, POLYMYXIN B and MORPHINE. FAMILY HISTORY: Noncontributory. SOCIAL HISTORY: Ex-smoker, quit in 2013. Drinks alcohol only occasionally. Denies use of illicit drugs. 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 PHYSICAL EXAMINATION: GENERAL: Pleasant male patient, who appears relatively comfortable, not in active pain or distress. VITAL SIGNS: Blood pressure 133/79 mmHg, heart rate is 86 beats per minute, respiration 24 per minute, temperature 37.4 degrees Celsius. CONSTITUTIONAL: The patient is lying supine in bed, appears comfortable, not in pain or distress. HEENT: Anicteric sclerae. Intact extraocular motions. NECK: Supple, without JVD, carotid bruits or lymphadenopathy. CHEST: Clear to auscultation without wheezes or crackles. HEART: Regular rate and rhythm without murmurs or gallops. ABDOMEN: Soft, lax with mild tenderness on deep palpation. No organomegaly. Active bowel sounds. EXTREMITIES: Lower extremity exam is negative for ankle edema, skin breaks or ulcerations. NEUROLOGIC: Awake, alert and oriented to time, place and person. The remainder [facility] [address] [place] [address] CONSULTATION Name: SNEHA JOSEPH Room #: 457-P ADM IN M.R.#: [id number] Admission: 11/06/19 Attend Phys: Alana Babin MD Discharge: Date of : 68 Report #: [id number] of his examination is nonfocal. PSYCHIATRIC: Pleasant, interactive. Normal mood and affect. Normal thought process. LABORATORY RESULTS: Blood glucose on arrival was 175 and remained mostly under 190 mg/dL, peaked at 232 mg/dL. Otherwise, sodium 139, potassium 3.7, chloride 104, CO2 of 23, anion gap 12, BUN 9, creatinine 1.0, glucose 244, AST 19, lipase 417, total bilirubin 0.6, direct bilirubin 0.1, calcium 7.9, phosphorus 3.2, magnesium 1.9, alkaline phosphatase 34, ALT 36, total protein 6.9, albumin 3.1, EGFR 79. Lactic acid is negative. Troponin is negative. Total cholesterol 217, triglycerides 1047, HDL 14, LDL cannot be calculated. INR 1.0. White blood count 8.1, hemoglobin 15.3, hematocrit 46.3, platelets 227. Hemoglobin A1c in 09/2018 was 12.6 and in ____ was 11. ASSESSMENT AND PLAN: 1. Type 2 diabetes mellitus. The patient has had type 2 diabetes mellitus for several years. He reports ideal control in 05/2019, but then worsening control over the past 6 months that he attributes to dietary noncompliance. Under the current conditions of acute pancreatitis and the likelihood of n.p.o. restrictions over the next 24-48 hours, I believe that the patient should be held off Jardiance, metformin and glipizide. That said, insulin would be the preferred mainstay of treatment short term and until the patient recovers from his acute episode of pancreatitis and is able to tolerate p.o. intake again. This was discussed with the patient at length and he is agreeable. He is currently on IV insulin therapy and has maintained a stable BG range of 170-190 with a stable IV insulin requirement of 5 units an hour. I will place him on Lantus 45 units daily, with moderate Humalog ISS support, and DC the IV insulin 2-3 hours following his first Lantus dose. We will maintain routine BG monitoring and I will obtain a current HGA1C. 2. Dyslipidemia. The patient presents with severe dyslipidemia despite active atorvastatin and fenofibrate therapy. Fenofibrate therapy will have to continue. I believe that the utilization of insulin, better glycemic control, and n.p.o. state are likely to help this issue tremendously. I will check his triglycerides again tomorrow morning to ensure an adequate responsiveness to this approach. 3. Hypertension. The patient's level of blood pressure control is adequate, he is to continue with the current regimen. I appreciate this consultation by Dr. Babin. <ELECTRONICALLY SIGNED> By: Amy Rodrigez MD 11/08/19 1141 [id number] [id number] Amy Rodrigez MD /nt
--- NOTE | 2019-11-08 13:32 | NUR ---
Received awake on bed. Due medications given as prescribed. A+Ox4. On telemetry, no complain of chest pain, crushing sensation and heaviness. To clarify with physician re: telemetry order, on admission orders pt is on MS only- as per Dr Buckley, may come off telemetry. room air during daytime and CPAP at night. On nothing per orem- pt informed and aware; mouth swabs done. On blood sugar monitoring every 6 hrs- taken and recorded accordingly, with sliding scale insulin ordered. Continent of bowel and bladder, able to use urinal and go to the toilet independently. Up ad tanya, independent with ADLs. With SL at L hand and D51/2NS at 80cc/hr, infusing well at R hand. Complained of pain, due PRN pain meds given as prescribed. Pt seen and examined by SURFACING MACHINE OPERATOR Gastro- may have full liquids for lunch- pt tolerated well; no nausea, no vomiting and no abdominal pain noted. To continue monitoring patient.
--- NOTE | 2019-11-08 14:23 | EKG ---
[facility] [place] [address] [place] [address] ELECTROCARDIOGRAM REPORT Name: JAKEGÓMEZ ASHLEY Room #: 457-P ADM IN M.R.#: [id number] Admission: 11/06/19 Attend Phys: Alana Babin MD Discharge: Date of : 68 Report #: [id number] THIS REPORT FOR: cc: Jeferson Polo MD, Douglas L. 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 : 1970 Requested By: Gómez Mcpherson Order Number: [id number] : Anton Mata Measurements Intervals [place] Rate: 77 P: 50 SC: 143 QRS: 5 QRSD: 101 T: 31 QT: 375 QTc: 425 Interpretive Statements Sinus rhythm J Point elev, probable normal early repol pattern Compared to ECG 10/06/2018 13:48:44 Atrial abnormality no longer present ST (T wave) deviation still present Electronically Signed On 11-08-2019 14:23:20 CDT by Anton Mata [email or web address] <ELECTRONICALLY SIGNED> By: Anton Mata MD, [facility] 11/08/19 1423 1342 1342 Anton Mata MD, [facility] /EPI
[2019-11-08 14:38] VITALS: BP 118/70
[2019-11-08 15:07] VITALS: BP 150/84
--- NOTE | 2019-11-08 15:49 | NUR ---
PT ADMITTED RELATED TO PANCREATITIS. CM REVIEWED CHART AND SPOKE WITH CARE TEAM. CM CALLED AND SPOKE WITH PT AT BEDSIDE THIS DAY. PT APPEARED TO BE A&O X4. CM ROLE INTRODUCED. PT INDICATED HE LIVES IN A MOBILE HOME WITH 4 STEPS TO ENTER AND NO STEPS INSIDE. 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 UR NURSE INDICATED THAT IT SHOWS INACTIVE. PT INDICATED THAT HE THINKS HE WOULD BE ABLT TO AFFORD MEDS UPON DC. CM TO FOLLOW INDICATED WITH DC PLANNING.
[2019-11-08 19:40] VITALS: BP 120/79
[2019-11-09 00:17] VITALS: BP 106/65
[2019-11-09 02:06] LABS: GLYCOHEMOGLOBIN (HGB A1C) 9.7 % (4.8-5.6)
--- NOTE | 2019-11-09 03:25 | NUR ---
PATIENT ADMITTED FOR PANCRETITIS. PAIN CONTROLLED THIS SHIFT. PATIENT IS USES A C PAP AT NIGHT.O2 SAT IS > 99%.PATIENT IS UP AT JEWEL.PATIENT HAS METOPROLOL IV CALLED CEPHALOMETRIC ANALYST D/T PATIENT BEING OFF TELE. NEW ORDER TO D/C METOPROLOL. VS WNL AND CHARTED ON [employer]. PATIENT IN BED ASLEEP AT THIS TIME BREATHING REGULAR AND UNLABOURED.
[2019-11-09 07:15] VITALS: BP 142/89
--- NOTE | 2019-11-09 10:35 | NUR ---
Received awake on bed. Due medications given as prescribed, able to swallow meds w/o difficulty. On room air at day time and using CPAP at night- compliant with CPAP use. A+Ox4. On MS, not on telemetry, no complain of chest pain, crushing sensation and heaviness. On full liquid diet- tolerating well; no nausea, no vomiting and no abdominal pain noted. On blood sugar monitoring- taken and recorded accordingly; no nausea, no vomiting and no abdominal pain noted. Up ad tanya. Independent with ADLs. With D5NS at 80cc/hr, infusing well at R hand; with SL at L hand. Complained of L shoulder pain, did not fall or lift anything heavy- Dr Montilla informed. To continue monitoring patient.
[2019-11-09 14:40] VITALS: BP 138/83
[2019-11-09 20:05] VITALS: BP 137/86
--- NOTE | 2019-11-10 04:09 | NUR ---
ASSUMED CARE OF PT AT 1900HRS. PT AOX4 AND LETS NEEDS BE KNOWN. PT IS UP AD JEWEL. ASSESSMENT CHARTED. PT DENIED PAIN, NAUSEA, AND SOA. ASSESSMENT CHARTED. PT USES CPAP AT HS. PT WAS ABLE TO GET COMFORTABLE AND SLEEP PART OF THE SHIFT. NO S/S OF ACUTE DISTRESS. WILL CONTINUE TO [facility].
[2019-11-10 05:53] LABS: HEMATOCRIT 35.9 % (42.0-52.0); MCH 27.3 pg (26.0-34.0); MCHC 32.3 g/dL (28.0-37.0); MCV 84.7 fL (80.0-100.0); RBC 4.24 mil/uL (4.50-6.00); RDW 15.3 % (10.5-14.5); WBC 4.4 thou/uL (4.0-11.0)
[2019-11-10 06:11] LABS: LIPASE 205 U/L (73-393); TRIGLYCERIDE 278 mg/dL (<150)
[2019-11-10 06:12] LABS: HEMOGLOBIN 11.6 gm/dL (14.0-18.0)
[2019-11-10 08:49] VITALS: BP 142/86
[2019-11-10] MEDS ORDERED: LANTUS SOL100 UNIT/1 SUBQ (10:56)
[2019-11-10 11:04] VITALS: BP 142/86
--- NOTE | 2019-11-10 11:09 | NUR ---
Received awake on bed. Due medications given as prescribed, able to swallow meds w/o difficulty. On room air during daytime and CPAP at HS. On MS, not on telemetry; no complain of chest pain, crushing sensation and heaviness. A+Ox4. On carb controlled diet- tolerating well; no nausea, no vomiting and no abdominal pain noted. On blood sugar monitoring-taken and recorded accordingly, with sliding scale insulin ordered- given as prescribed. With D5NS at 80cc/hr, infusing well at R hand; with SL at L hand. No complains of pain made during assessment. Continent of bowel and bladder- using the urinal and going to the toilet independently. Possible discharge today- a/w physician's rounds. To continue monitoring patient. Pt seen and examined by Dr Montilla this AM, discharge orders made-CM informed. Discharge instructions, follow up schedule given and instructed. Discharge forms signed.
== END 2019-11-10 12:30 | disposition home or self-care (01) | DRG 439 ==
LOC: ER 11:27 → EROBS 17:00 → 4W 11-07 19:50
PROVIDERS: Emergency Medicine; Internal Medicine; Nurse Practitioner; ADMIT Internal Medicine; ATTEND Internal Medicine
PROC: 5A09457 Assistance with Respiratory Ventilation, 24-96 Consecutive Hours, Continuous Positive Airway Pressure (ICD-10-PCS; principal; 2019-11-07)
DX: K85.90 Acute pancreatitis without necrosis or infection, unspecified (principal); Z68.41 Body mass index [BMI] 40.0-44.9, adult; I10 Essential (primary) hypertension; E78.5 Hyperlipidemia, unspecified; I25.10 Atherosclerotic heart disease of native coronary artery without angina pectoris; E11.65 Type 2 diabetes mellitus with hyperglycemia; E78.1 Pure hyperglyceridemia; K76.0 Fatty (change of) liver, not elsewhere classified; E83.51 Hypocalcemia; K21.9 Gastro-esophageal reflux disease without esophagitis; E66.9 Obesity, unspecified; Z88.6 Allergy status to analgesic agent; Z95.5 Presence of coronary angioplasty implant and graft; Z79.4 Long term (current) use of insulin; I25.2 Old myocardial infarction; Z87.11 Personal history of peptic ulcer disease; Z88.1 Allergy status to other antibiotic agents; Z87.891 Personal history of nicotine dependence; Z82.49 Family history of ischemic heart disease and other diseases of the circulatory system
CPT/HCPCS: 10040

== ENCOUNTER → 2020-04-28 | Outpatient (CLI) | payer BC, OTHER ==
[~2020-04-28] MED LIST changes: +LANTUS SOL100 UNIT/1 SUBQ; +PROTONIX40 M2 PO; +VASCEPA0.5 GM PO
== END ==
LOC: SJCVCIMAG 07:43
PROVIDERS: ATTEND Internal Medicine
DX: I42.9 Cardiomyopathy, unspecified (principal); E78.5 Hyperlipidemia, unspecified